=== PATIENT | male | born 1975 | race American Indian/Alaskan Native ===

== ENCOUNTER 2019-10-29 06:11 | Emergency (ER) | payer SELFPAY ==
[2019-10-29] MEDS ORDERED: cloNIDine 0.1 MG TAB PO ONE (06:23)
--- NOTE | 2019-10-29 07:00 | Cat Scan Report ---
CT HEAD WITHOUT CONTRAST INDICATION : Headache. Dizziness. Hypertension. TECHNIQUE: Axial, coronal and sagittal CT imaging was performed from the skull apex through the skul l base without contrast. All CT scans at this location are performed using CT dose reduction for ALA RA by means of automated exposure control. COMPARISON: CT head without contrast from 11/26/2012. FINDINGS: PARENCHYMA: No mass, midline shift, hemorrhage, extraaxial collection or acute territorial infarctio n. A cavum septum pellucidum is noted. VENTRICLES: Symmetric and normal in size. SOFT TISSUES: Soft tissues including the orbits appear normal. BONES: No acute osseous abnormality. SINUSES: No significant abnormality. ADDITIONAL FINDINGS: None. IMPRESSION: No acute intracranial abnormality. Signer Name: Bull Claudio MD Signed: 10/29/2019 6:55 AM Workstation Name: [id number]
[2019-10-29 07:17] LABS: Basophils # (Auto) 0.1 K/mm3 (0.0-0.1); Basophils % (Auto) 1.1 % (0.0-1.8); Eosinophils # (Auto) 0.1 K/mm3 (0.0-0.4); Eosinophils % (Auto) 1.8 % (0.0-4.3); Hematocrit 45.3 % (35.5-45.6); Lymphocytes % (Auto) 21.2 % (13.4-35.0); Mean Corpuscular HGB Conc 33 % (32-34); Mean Corpuscular Volume 81 fl (84-94); Monocytes # (Auto) 0.4 K/mm3 (0.0-0.8); Monocytes % (Auto) 7.5 % (0.0-7.3); Platelet Count 251 K/mm3 (140-440); Red Blood Count 5.62 M/mm3 (3.65-5.03); Red Cell Distribution Width 16.4 % (13.2-15.2)
[2019-10-29 07:36] LABS: BUN/Creatinine Ratio 13; Blood Urea Nitrogen 18 mg/dL (9-20); Calcium 9.5 mg/dL (8.4-10.2); Hemolysis Index 7
[2019-10-29 07:54] VITALS: BP 151/102
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
[2019-10-29] MEDS ORDERED: LISINOPRIL 20 MG TAB PO ONE (07:58)
[2019-10-29] MEDS ORDERED: hydroCHLOROthiazide 25 MG TAB PO ONE (07:58)
== END 2019-10-29 09:40 | disposition home or self-care (01) ==
LOC: ED 06:11
DX: R51 Headache (principal); H53.8 Other visual disturbances; I10 Essential (primary) hypertension; F10.10 Alcohol abuse, uncomplicated; Z98.890 Other specified postprocedural states; Z79.899 Other long term (current) drug therapy
CPT/HCPCS: 36415; 70450; 80048; 85025